=== PATIENT | male | born 1995 | race Caucasian/White ===

== ENCOUNTER 2025-06-07 13:47 | Emergency (ER) | payer BC, SELFPAY ==
[2025-06-07 13:54] VITALS: BP 165/105
[2025-06-07 18:07] VITALS: BP 145/94
--- NOTE | 2025-06-07 22:44 | ED.MUSCINJ ---
HPI-Injury
General
Chief Complaint: Musculo-Skeletal Complaint
Source: patient
Exam Limitations: none
Time Seen by Provider: 06/07/25 17:24
Nursing documentation reviewed up to this point in time: agreed with
History of Present Illness-Injury
Is this injury a work related problem?: No
Is pt an associate of [facility]/[place]?: No
Initial Injury comments:
Patient to emergency department for evaluation of left knee pain swelling and bruising. Patient states that he was at a concert on Sunday and fell onto his knee. States he was able to stand and walk afterwards but with pain. Since then he has
noted increasing swelling and bruising to his knee. Bruising is now migrating down his leg. Brought self to the emergency department for evaluation. He is currently using crutches for ambulation.
Past History
Past History
ED Past Medical History: None
Review of Systems
Review of Systems
Allergies reviewed?: Yes
All Other Systems: ROS reviewed and negative except as documented in HPI and ROS
Constitutional: Reports no symptoms
Musculoskeletal: Reports joint pain (Pain to left knee)
Skin: Reports other (Bruising to left lower extremity/just above left knee to mid anderson)
Neurological: Reports no symptoms
Psychiatric: Reports no symptoms
Musculoskeletal Injury Exam
Musculoskeletal Injury Exam
Left Knee:
Pain with Movement?: Moderate
Tender to palpation?: Moderate
Soft tissue swelling?: Moderate
External deformity and angulation?: None
Joint effusion?: None
Contusion?: Moderate
Hematoma-local bleeding into tissue?: Moderate
Strain- Sprain- Tear (Connective tissue injury)?: Moderate
Crepitus with movement?: No
Joint instability?: No
Malalignment/deformity?: No
Range of motion: Limited
Distal skin color and temperature: normal-warm & good color
Capillary Refill: normal
Normal distal neurovascular exam?: Yes
Peripheral Pulses: posterior tibial (left): 3+ and dorsalis pedis (left): 3+
Phy Exam
General Physical Exam
General Presentation: well appearing and mild distress
General age: appears stated age
General Skin: warm and dry
General Habitus: normal
General Mental: alert
General Hydration: appears well hydrated
Musculoskeletal Exam
Musculoskeletal Exam: neuro vasc intact and other (Limited range of motion to left knee due to pain and swelling. Unable to palpate quadraceps tendon due to swelling. )
Skin Exam
Skin Exam: warm/dry and other (Large amount of bruising and swelling to left knee. Bruising and swelling migrating down through left anderson)
Psychiatric Exam
Psychiatric Exam: normal mood/affect
Injury Course
Orders/Labs/Results
Orders:
Orders
06/07/25 13:59
Knee, Left 4 or More Views [CR Knee - Left 4 Or More View*] Urgent
Comment:
Reason For Exam: injury pain
06/07/25 17:50
Carrington Wrap Left-Treatment ONCE
Knee Immobilizer Left-Treatmen ONCE
*Radiology
Radiology exam reviewed: radiology read reviewed
*Pulse Oximetry
SaO2: 99
Oxygen Mode of Delivery: Room air
Patient hypoxic: no
*Critical Care Note
Total Time (30-74mins, 75-104mins- exclusive of procedures): Not Applicable
Update Note
Update Note:
Patient to the emergency department for evaluation of pain and swelling to his left knee. He reports falling onto his knee on Sunday while at a concert. States he was able to stand and ambulate after fall but since then has had increasing pain
swelling and bruising to his left knee. Swelling and bruising is now migrating down leg. Using crutches to ambulate. X-ray reviewed. No evidence of acute fracture. Large effusion noted. Discussed findings with him. Will place in a knee
immobilizer splint. Carrington wrap was applied to help control swelling. He will remove Carrington wrap at bedtime, apply in AM. He was given the number for orthopedics and will call in a.m. to schedule an appointment for this week for follow-up. He was
given instructions on signs and symptoms to return to the emergency department and he is agreeable to this plan.
ED Attending Note
-
Portions of this chart may have been created with voice recognition software.� Occasional wrong word or��sound alike� substitutions may have occurred due to the inherent limitations of voice recognition software.
Discharge Plan
Departure
Patient Disposition: Home (Routine Discharge)
Date of Disposition: 06/07/25
Time of Disposition: 17:50
Patient with high blood pressure during this ER visit?: No
Condition: Good
Covid-19: Not Applicable
Discharge Problem:
Knee sprain
Instructions: Muscle Strain (DC), How to Use Crutches, Knee Immobilizer (DC), Contusion (DC), RICE Therapy
Referrals:
NONE,* [Family Provider, Internal Medicine]
Curtis English MD [Active, Orthopedics] - Call in 1-3 days for appt
Stand Alone Forms: Return to Work
Interventions
Interventions:
*General Assessment Last Done: 06/07/25 13:54
*Neglect/Abuse Screening Last Done: 06/07/25 13:54
*Risk Screen - Suicide (C-SSRS) Last Done: 06/07/25 13:54
*Nursing Disposition Last Done: 06/07/25 18:08
ED-Musculoskeletal Assessment Last Done: 06/07/25 18:05
Discharge Date and Time
Discharge Date/Time: 06/07/25 18:08
Print Language: ITALIAN
== END 2025-06-07 18:08 | disposition home or self-care (01) ==
LOC: EMR 13:47
PROVIDERS: EMERGENCY PHYSICIAN Emergency Medicine
DX: S83.92XA Sprain of unspecified site of left knee, initial encounter (principal); W18.30XA Fall on same level, unspecified, initial encounter
CPT/HCPCS: 99283; 29505; 73564